=== PATIENT | male | born 1960 | race Caucasian/White ===

== ENCOUNTER 2018-02-05 15:49 | Emergency (ER) | payer BC ==
[~2018-02-05] VITALS: Ht 177.8 cm; Wt 84.3 kg
[2018-02-05 17:28] VITALS: BP 112/58
== END 2018-02-05 17:28 | disposition home or self-care (01) ==
LOC: EME 15:49
DX: K59.00 Constipation, unspecified (principal); R33.9 Retention of urine, unspecified; E78.5 Hyperlipidemia, unspecified
CPT/HCPCS: 81003; 99281; 99283